=== PATIENT | female | born 1990 | race Caucasian/White ===

== ENCOUNTER → 2016-07-18 | Outpatient (CLI) | payer BC ==
--- NOTE | 2016-07-18 11:26 | DI ---
Indication: ITS.REASON: M79.671 PAIN IN RIGHT FOOT PROCEDURE: FOOT RIGHT 3 VIEWS: Encounter: Initial Comparison: None Findings: There is no acute fracture, dislocation or malalignment identified. Impression: No acute osseous abnormality. .
--- NOTE | 2016-07-18 11:27 | DI ---
Indication: ITS.REASON: M79.671 PAIN IN RT FOOT PROCEDURE: ANKLE RIGHT 3 VIEW: Encounter: Initial Comparison: None Findings: There is no acute fracture, dislocation or malalignment identified. Impression: No acute osseous abnormality. .
== END ==
LOC: IMA 11:01
PROVIDERS: ATTEND Family Medicine
DX: M79.671 Pain in right foot (principal)

== ENCOUNTER → 2016-07-19 | Outpatient (CLI) | payer BC ==
--- NOTE | 2016-07-19 08:58 | DI ---
Indication: ITS.REASON: M79.671 PAIN IN RIGHT FOOT PROCEDURE: MRI FOOT RIGHT W/O CONTRAST: Encounter: Initial Comparison: Right foot radiographs dated July 18, 2016 Technique: Multiplanar multisequence MR imaging of the right foot was performed without contrast. Findings: A marker was placed indicating the site of patient's maximal pain. This is adjacent to the fifth metatarsal base. There is bone marrow edema seen within the anterior aspect of the cuboid bone. Also there is attenuation and increased T2 signal intensity of the distal peroneus brevis tendon consistent with partial tear and tendinopathy. There is some edema in the adjacent lateral foot musculature adjacent to the anterior calcaneus and cuboid. No edema in the fifth metatarsal bone. The remaining bone marrow signal intensity is normal. No dislocation. The visualized flexor, extensor and Achilles tendons are otherwise grossly normal. Intrinsic foot musculature shows otherwise normal signal intensity. The Lisfranc ligament is intact. Plantar fascia is normal. Impression: 1. Focal edema within the anterior cuboid bone could be due to bone contusion or nondisplaced trabecular fracture. 2. Strain or partial tearing of the peroneus brevis with tendinopathy. 3. Lateral plantar muscular tearing. .
== END ==
LOC: IMA 07:34
PROVIDERS: ATTEND Family Medicine
DX: S86.311A Strain of muscle(s) and tendon(s) of peroneal muscle group at lower leg level, right leg, initial encounter (principal); S86.111A Strain of other muscle(s) and tendon(s) of posterior muscle group at lower leg level, right leg, initial encounter; W22.8XXA Striking against or struck by other objects, initial encounter; Y93.89 Activity, other specified; Y92.481 Parking lot as the place of occurrence of the external cause; Y99.9 Unspecified external cause status; R60.0 Localized edema; M79.671 Pain in right foot